=== PATIENT | male | born 1965 | race American Indian/Alaskan Native ===

== ENCOUNTER 2017-03-21 12:45 | Emergency (ER) | payer SELFPAY ==
[2017-03-21 13:43] VITALS: BP 112/79
[2017-03-21] MEDS ORDERED: FLAGYL PO ONE (17:25)
--- NOTE | 2017-03-21 17:27 | Emergency Department Report ---
ED Male HPI - General Chief complaint: Urogenital-Male Stated complaint: POSS STD Time Seen by Provider: 03/21/17 16:33 Source: patient Mode of arrival: Ambulatory Limitations: No Limitations - History of Present Illness Initial comments: pt endorses test positive for Trichomoniasis pt denies symptoms seeking tx for same, pt denies symptoms no discharge no dysuria no frequency no urgency no rash no lesions no open sores. Severity scale (0 -10): 0 - Related Data Sexually active: Yes ( , denies symptoms pos for trich) Allergies Allergy/AdvReac Type Severity Reaction Status Date / Time No Known Allergies Allergy Verified 03/21/17 13:39 ED Review of Systems ROS: Stated complaint: POSS STD Other details as noted in HPI Constitutional: denies: chills, fever Eyes: denies: eye pain, eye discharge, vision change ENT: denies: ear pain, throat pain Respiratory: denies: cough, shortness of breath, wheezing Cardiovascular: denies: chest pain, palpitations Endocrine: no symptoms reported Gastrointestinal: denies: abdominal pain, nausea, diarrhea Genitourinary: denies: urgency, dysuria, frequency, hematuria, discharge, testicular pain, testicular mass Musculoskeletal: denies: back pain, joint swelling, arthralgia Skin: denies: rash, lesions Neurological: denies: headache, weakness, paresthesias Psychiatric: denies: anxiety, depression Hematological/Lymphatic: denies: easy bleeding, easy bruising ED Past Medical Hx - Past Medical History Previous Medical History?: No - Surgical History Past Surgical History?: No - Social History Smoking Status: Never Smoker Substance Use Type: None ED Physical Exam - General Limitations: No Limitations General appearance: alert, in no apparent distress - Head Head exam: Present: atraumatic, normocephalic - Eye Eye exam: Present: normal appearance - ENT ENT exam: Present: mucous membranes moist - Neck Neck exam: Present: normal inspection - Respiratory Respiratory exam: Present: normal lung sounds bilaterally. Absent: respiratory distress - Cardiovascular Cardiovascular Exam: Present: regular rate, normal rhythm. Absent: systolic murmur, diastolic murmur, rubs, gallop - GI/Abdominal GI/Abdominal exam: Present: soft, normal bowel sounds - Rectal Rectal exam: Present: deferred - exam: Present: normal inspection, circumcision. Absent: testicular tenderness, urethral discharge, scrotal swelling, vertical testicular lie External exam: Present: normal external exam - Extremities Exam Extremities exam: Present: normal inspection - Back Exam Back exam: Present: normal inspection - Neurological Exam Neurological exam: Present: alert, oriented X3 - Psychiatric Psychiatric exam: Present: normal affect, normal mood - Skin Skin exam: Present: warm, dry, intact, normal color. Absent: rash ED Course Vital Signs 03/21/17 13:40 Temperature 98.5 F Pulse Rate 76 Respiratory 18 Rate Blood Pressure 112/79 O2 Sat by Pulse 100 Oximetry ED Medical Decision Making - Medical Decision Making pt presents for pos trich contact , pt denies symptoms , pt advised to seek eval with primary care or health department for HIV , HBV, and std screening will tx for trich in ED , UA noted: Critical care attestation.: If time is entered above; I have spent that time in minutes in the direct care of this critically ill patient, excluding procedure time. ED Disposition Clinical Impression: STI (sexually transmitted infection) Disposition: DC-01 TO HOME OR SELFCARE Is pt being admited?: No Does the pt Need Aspirin: No Condition: Good Instructions: Trichomoniasis (ED) Referrals: PRIMARY CARE, [Primary Care Provider] - 3-5 Days Forms: Work/School Release Form(ED)
[2017-03-21 18:30] LABS: Bilirubin,Urine NEG (Negative); Blood,Urine NEG (Negative); Ketones,Urine NEG (Negative); Leukocyte Esterase,Urine NEG (Negative); Nitrite,Urine NEG (Negative); Protein,Urine <15 mg/dL mg/dL (Negative); Urobilinogen,Urine < 2.0 mg/dL (<2.0); WBC,Urine < 1.0 /HPF (0.0-6.0)
== END 2017-03-21 19:14 | disposition home or self-care (01) ==
LOC: ED 12:45
DX: A64 Unspecified sexually transmitted disease (principal)
CPT/HCPCS: 81001; 99283

== ENCOUNTER 2020-10-29 19:15 | Emergency (ER) | payer SELFPAY ==
[2020-10-29] MEDS ORDERED: ASPIRIN 325 MG TAB PO ONE (19:41)
[2020-10-29] MEDS ORDERED: ACETAMINOPHEN 500 MG TAB PO ONE (19:41)
--- NOTE | 2020-10-29 19:57 | Event Note ---
ED Screening Note Date of service: 10/29/20 ED Screening Note: This is a 55-year-old patient with no past medical history presents to the ED with left lateral rib pain, pleuritic chest wall pain, dry cough and diffuse body aches and pains, nausea and vomiting for the last 1 week, worse in the last 2 days. Patient states that she just finished a course of antibiotics for dental abscess about a week ago but his symptoms have worsened in the last 2 days. Patient denies dizziness, syncope, fever, chills, abdominal pain, hematuria, dysuria, urinary frequency and urgency, shortness of breath, sore throat or neck pain and headache. This initial assessment/diagnostic orders/clinical plan/treatment(s) is/are subject to change based on patients health status, clinical progression and re- assessment by fellow clinical providers in the ED. Further treatment and workup at subsequent clinical providers discretion. Patient/guardian urged not to elope from the ED as their condition may be serious if not clinically assessed and managed. Initial orders include: CBC, CMP, troponin, EKG, chest x-ray and urinalysis
--- NOTE | 2020-10-29 20:19 | XRay Report ---
CHEST 2 VIEWS INDICATION / CLINICAL INFORMATION: cough, pleuritic chest pain. COMPARISON: None available. FINDINGS: SUPPORT DEVICES: None. HEART / MEDIASTINUM: No significant abnormality. LUNGS / PLEURA: No significant pulmonary or pleural abnormality. No pneumothorax. ADDITIONAL FINDINGS: No significant additional findings. IMPRESSION: No significant abnormality Signer Name: Bradly Croft MD FACR Signed: 10/29/2020 8:14 PM Workstation Name: [id number]
[2020-10-29 20:22] LABS: Basophils % (Auto) 0.5 % (0.0-1.8); Eosinophils # (Auto) 0.2 K/mm3 (0.0-0.4); Eosinophils % (Auto) 2.8 % (0.0-4.3); Hematocrit 48.2 % (35.5-45.6); Lymphocytes # (Auto) 3.6 K/mm3 (1.2-5.4); Lymphocytes % (Auto) 43.6 % (13.4-35.0); Mean Corpuscular HGB Conc 33 % (32-34); Mean Corpuscular Volume 85 fl (84-94); Monocytes # (Auto) 0.7 K/mm3 (0.0-0.8); Monocytes % (Auto) 9.1 % (0.0-7.3); Platelet Count 179 K/mm3 (140-440); Red Blood Count 5.67 M/mm3 (3.65-5.03); Red Cell Distribution Width 13.2 % (13.2-15.2)
[2020-10-29 20:32] LABS: Alanine Aminotransferase 49 units/L (7-56); Albumin 4.3 g/dL (3.9-5); BUN/Creatinine Ratio 9; Blood Urea Nitrogen 7 mg/dL (9-20); Calcium 9.1 mg/dL (8.4-10.2); Hemolysis Index 22
--- NOTE | 2020-10-29 21:45 | Emergency Department Report ---
ED General Adult HPI - General Chief complaint: Abdominal Pain Stated complaint: LT SIDE PAIN PUI?: No Time Seen by Provider: 10/29/20 21:24 Source: patient Mode of arrival: Ambulatory Limitations: No Limitations - History of Present Illness Initial comments: CC: I am afraid of COVID HPI: This is a healthy 55-year-old male with history of marijuana dependence who presents with coughing for the past 2 days. He has left lower rib cage pain left flank pain. He has diffuse body aches. He has had nausea vomiting over the last week. He finished a course of antibiotics. However he still has persistent symptoms. He denies fever. Denies loss of taste or smell. He has had multiple contacts at work positive for COVID-19. 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 His main concern is the fatigue. -: Gradual, week(s) (1) Location: chest, back Severity scale (0 -10): 4 Quality: aching, dull Consistency: intermittent Improves with: rest Worsens with: other (Cough) Associated Symptoms: malaise, other (Fatigue) - Related Data Allergies Allergy/AdvReac Type Severity Reaction Status Date / Time No Known Allergies Allergy Verified 03/21/17 13:39 ED Review of Systems ROS: Stated complaint: LT SIDE PAIN Other details as noted in HPI Comment: All other systems reviewed and negative Constitutional: malaise. denies: chills, fever Respiratory: cough. denies: shortness of breath Cardiovascular: denies: chest pain Gastrointestinal: denies: abdominal pain, nausea Musculoskeletal: back pain ED Past Medical Hx - Past Medical History Previous Medical History?: No - Surgical History Past Surgical History?: No - Social History Smoking Status: Never Smoker Substance Use Type: Marijuana ED Physical Exam - General Limitations: No Limitations General appearance: alert, in no apparent distress, other (Well-appearing talkative no acute distress) - Head Head exam: Present: atraumatic, normocephalic - Eye Eye exam: Present: normal appearance - ENT ENT exam: Present: mucous membranes moist - Neck Neck exam: Present: normal inspection - Respiratory Respiratory exam: Present: normal lung sounds bilaterally. Absent: respiratory distress, wheezes, rales, rhonchi - Cardiovascular Cardiovascular Exam: Present: regular rate, normal rhythm, normal heart sounds. Absent: systolic murmur, diastolic murmur, rubs, gallop - GI/Abdominal GI/Abdominal exam: Present: soft, normal bowel sounds. Absent: distended, tenderness, guarding, rebound - Rectal Rectal exam: Present: deferred - Extremities Exam Extremities exam: Present: normal inspection - Neurological Exam Neurological exam: Present: alert, oriented X3, normal gait - Psychiatric Psychiatric exam: Present: normal affect, normal mood - Skin Skin exam: Present: warm, dry, intact, normal color. Absent: rash ED Course Vital Signs 10/29/20 19:19 Temperature 97.9 F Pulse Rate 77 Respiratory 18 Rate Blood Pressure 119/71 O2 Sat by Pulse 96 Oximetry ED Medical Decision Making - Lab Data Result diagrams: 10/29/20 19:47 10/29/20 19:47 Laboratory Results - last 24 hr 10/29/20 10/29/20 10/29/20 19:47 19:47 19:47 WBC 8.2 RBC 5.67 H Hgb 16.0 H Hct 48.2 H MCV 85 MCH 28 MCHC 33 RDW 13.2 Plt Count 179 Lymph % (Auto) 43.6 H [place] % (Auto) 9.1 H Eos % (Auto) 2.8 Baso % (Auto) 0.5 Lymph # (Auto) 3.6 [place] # (Auto) 0.7 Eos # (Auto) 0.2 Baso # (Auto) 0.0 Seg Neutrophils % 44.0 Seg Neutrophils # 3.6 Sodium 137 Potassium 4.6 Chloride 100.7 Carbon Dioxide 29 Anion Gap 12 BUN 7 L Creatinine 0.8 Estimated GFR > 60 BUN/Creatinine Ratio 9 Glucose 89 Calcium 9.1 Total Bilirubin 0.40 AST 42 H ALT 49 Alkaline Phosphatase 78 Troponin T < 0.010 Total Protein 7.0 Albumin 4.3 Albumin/Globulin Ratio 1.6 - Medical Decision Making Heart score 1 for age: Patient has infectious symptoms. I do not suspect ACS. Patient presents with cough malaise nausea vomiting for past week. I suspect left rib cage pain flank pain due to coughing. Mild strain. Suggested outpatient COVID-19 testing. Discharged home. Critical care attestation.: If time is entered above; I have spent that time in minutes in the direct care of this critically ill patient, excluding procedure time. ED Disposition Clinical Impression: Left flank pain, Cough Disposition: DC-01 TO HOME OR SELFCARE Is pt being admited?: No Does the pt Need Aspirin: No Condition: Stable Instructions: Flank Pain, Adult, [id number] Forms: Work/School Release Form(ED)
[2020-10-29 22:12] VITALS: BP 122/76
== END 2020-10-29 22:06 | disposition home or self-care (01) ==
LOC: ED 19:15
DX: R05 Cough (principal); R10.9 Unspecified abdominal pain; F12.20 Cannabis dependence, uncomplicated
CPT/HCPCS: 36415; 71046; 80053; 84484; 85025